=== PATIENT | female | born 1960 | race African-American/Black ===

== ENCOUNTER 2020-12-30 10:50 | Outpatient (CLI) | payer OTHER, SELFPAY ==
--- NOTE | ~2020-12-30 | MM_ITS ---
EXAMINATION: MM screening [facility] w lucretia HISTORY: Screening TECHNIQUE: Craniocaudal and mediolateral oblique 3-D tomosynthesis images were obtained and synthetic 2-D images were generated. CAD analysis was submitted and interpreted. COMPARISON: 02/21/2016 BREAST PARENCHYMAL COMPOSITION: There are scattered areas of fibroglandular density. FINDINGS: There is no evidence of suspicious mass, calcification, or architectural distortion to sugg est malignancy in either breast. There has been no suspicious interval change. IMPRESSION: 1. No mammographic evidence of malignancy. 2. Recommend routine screening mammography in one year. 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
== END 2020-12-30 10:51 | disposition home or self-care (01) ==
PROVIDERS: PCP Family Medicine; Visit Provider Obstetrics & Gynecology
DX: Z12.31 Encounter for screening mammogram for malignant neoplasm of breast (principal)
CPT/HCPCS: 77063; 77067

== ENCOUNTER → 2021-03-01 03:42 | Outpatient (CLI) | payer OTHER, SELFPAY ==
[2021-03-01 20:31] LABS: SARS-CoV-2 RNA PCR Negative
== END ==
PROVIDERS: PCP Family Medicine; Visit Provider Internal Medicine Gastroenterology
DX: Z01.812 Encounter for preprocedural laboratory examination (principal); Z20.822 Contact with and (suspected) exposure to COVID-19
CPT/HCPCS: C9803; U0003; U0005

== ENCOUNTER 2021-03-04 02:00 | Day surgery (SDC) | payer OTHER, SELFPAY ==
[2021-02-24 15:24] VITALS: BMI 29.1
[2021-03-04 09:01] VITALS: BP 142/92; PULSE 85; RESP 18; TEMP 35.9; O2SAT 100; BMI 29.8
[2021-03-04 09:10] LABS: Glucose Point of Care 111 (65-105)
[2021-03-04] MEDS: LACTATED RINGERS 1,000 ML 150 ML IV CONT (09:21)
--- NOTE | 2021-03-04 09:38 | PM.HPGS ---
History of Present Illness History of Present Illness Consent: Risks, benefits, and alternatives have been discussed and questions answered. Patient agrees to proceed with procedure. Chief complaint: neoplasm screening Narrative: Laura Neal is a 60 year old female referred for colon cancer screening. Review of Systems Review of Systems: All systems reviewed & are unremarkable except as noted in HPI and below PMFSH Past Medical History Medical History Borderline diabetes H/O vaginal delivery x5 High cholesterol Hypertension Surgical History Surgical History History of tubal ligation [place] teeth removed Family History Family History Father Hypertension Cerebrovascular accident Family history of coronary artery disease Patient's father is Mother Hypertension Cerebrovascular accident Family history of coronary artery disease Patient's mother is Sibling Cerebrovascular accident Grandparent Diabetes mellitus Other Lung cancer Social History Social History Social History: Smoking status: Never smoker Tobacco type: cigarettes Second hand tobacco smoke exposure: No Smoking end date: 08/21/79 Alcohol intake: never Substance use: never Substance use type: does not use Living arrangements: with family Gender identity (if verbalized by the patient): Female Spiritual care concerns: No Meds Home Medications and Allergies Home Medications Medication Instructions Recorded Confirmed Type atenolol 25 mg tablet 25 mg PO DAILY 11/24/19 03/04/21 History indapamide 2.5 mg tablet 2.5 mg PO DAILY 11/24/19 03/04/21 History Allergies Allergy/AdvReac Type Severity Reaction Status Date / Time sunscreen Allergy Intermediate Hives Uncoded 03/04/21 08:54 Vital Signs Vital Signs - 24 hr 03/04/21 09:01 Temperature 35.9 C L Pulse Rate 85 Respiratory Rate 18 Blood Pressure 142/92 H Pulse Oximetry 100 Exam Resp: Auscultation: clear to auscultation bilaterally Cardio: Rate: regular rate Rhythm: regular rhythm GI: GI Palp: Yes Soft to palpation and No Tenderness to palpation present (GI) Assessment and Plan Assessment and plan (1) Colon cancer screening: Code(s): Z12.11 - Encounter for screening for malignant neoplasm of colon Status: Acute Assessment and Plan: Colonoscopy with possible biopsy or polypectomy or cautery or injection of substances.
--- NOTE | 2021-03-04 09:52 | WPDANESEPPF ---
Anes - Initial Pre Proc Eval Procedure: Operation Date: 03/04/21 10:00 Proposed Procedures p Screening Colonoscopy - Nick Mendoza MD Date/Time: 03/04/21 09:52 Surgeon: Nick Mendoza MD Pre Op Diagnosis: neoplasm screening Patient Data Age: 60 Gender: F Height: 5 ft 4 in Weight: 78.8 kg Last Vital Signs Temp 96.6 F L 03/04/21 09:01 Pulse 85 03/04/21 09:01 Resp 18 03/04/21 09:01 BP 142/92 H 03/04/21 09:01 Pulse Ox 100 03/04/21 09:01 Allergies Allergy/AdvReac Type Severity Reaction Status Date / Time sunscreen Allergy Intermediate Hives Uncoded 03/04/21 08:54 Home Medications Medication Instructions Recorded Confirmed Type atenolol 25 mg tablet 25 mg PO DAILY 11/24/19 03/04/21 History indapamide 2.5 mg tablet 2.5 mg PO DAILY 11/24/19 03/04/21 History Laboratory Tests 03/04/21 09:07 POC Capillary Glucose 111 mg/dl H mg/dl (65-105) Patient hx anesthesia problems: none Family hx anesthesia problems: none PMFSH Past Medical History Medical History Borderline diabetes H/O vaginal delivery x5 High cholesterol Hypertension Surgical History Surgical History History of tubal ligation [place] teeth removed Family History Family History Father Hypertension Cerebrovascular accident Family history of coronary artery disease Patient's father is Mother Hypertension Cerebrovascular accident Family history of coronary artery disease Patient's mother is Sibling Cerebrovascular accident Grandparent Diabetes mellitus Other Lung cancer Social History Social History Social History: Smoking status: Never smoker Tobacco type: cigarettes Second hand tobacco smoke exposure: No Smoking end date: 08/21/79 Alcohol intake: never Substance use: never Substance use type: does not use Living arrangements: with family Gender identity (if verbalized by the patient): Female Spiritual care concerns: No Anes - Eval Final PreProcedure Day of Procedure 03/04/21 09:52 Patient weight: overweight Heart: regular rate and rhythm Lungs: clear to auscultation Airway: Mallampati scale class II Neurological: alert and oriented Last oral intake: >/= 8 hours ASA classification: II Emergent: no Anesthetic plan: proceed Anesthesia type and monitoring: general GIVS and standard monitoring Informed Consent: The patient's anesthetic plan and its attendant risks and benefits were discussed with the patient/family/POA. Questions were solicited and answers provided to the satisfaction of the patient/family/POA.
[2021-03-04 10:21] VITALS: BP 114/70; PULSE 73; RESP 18; O2SAT 100
[2021-03-04 10:31] VITALS: BP 123/77; PULSE 70; RESP 18; O2SAT 99
[2021-03-04 10:41] VITALS: BP 143/93; PULSE 71; RESP 18; O2SAT 100
== END 2021-03-04 10:54 | disposition home or self-care (01) ==
PROVIDERS: PCP Family Medicine; Visit Provider Internal Medicine Gastroenterology
PROC: 0DJD8ZZ Inspection of Lower Intestinal Tract, Via Natural or Artificial Opening Endoscopic (ICD-10-PCS; CPT 45378; principal; 2021-03-04 10:00)
DX: Z12.11 Encounter for screening for malignant neoplasm of colon (principal); K63.5 Polyp of colon; D12.3 Benign neoplasm of transverse colon; K57.32 Diverticulitis of large intestine without perforation or abscess without bleeding; I10 Essential (primary) hypertension; E78.00 Pure hypercholesterolemia, unspecified
CPT/HCPCS: 45385; 45380; 82948; 88305; C9803; J2704; J7120; U0003; U0005

== ENCOUNTER 2022-03-10 10:30 | Outpatient (CLI) | payer OTHER, SELFPAY ==
--- NOTE | ~2022-03-10 | XR_ITS ---
XR lumbar spine min 4V DATE: 03/10/2022 10:49 INDICATION: Low back pain. No injury. TECHNIQUE: AP, lateral, bilateral oblique views and coned lateral lumbosacral view COMPARISON: None FINDINGS: There is mild dextro scoliosis of the lower thoracic and lumbar spine. No fracture or bone destruction or spondylolisthesis is noted. There is degenerative change at the lo wer lumbar and lumbosacral apophyseal joints with associated grade 1 anterolisthesis at L4-5. There is mild loss of interspace height at L3-4 and moderately prominent loss of interspace height at L4-5. The sacroiliac joints are intact IMPRESSION: Dextroscoliosis Grade 1 anterolisthesis at L4-5 Mild loss of interspace height at L3-4, moderately prominent loss of interspace height at L4-5 Reviewed, dictated and finalized at location A.
== END 2022-03-10 10:31 | disposition home or self-care (01) ==
LOC: ANHIMG 10:33
PROVIDERS: PCP Family Medicine; Visit Provider Family Medicine
DX: M47.816 Spondylosis without myelopathy or radiculopathy, lumbar region (principal); M41.9 Scoliosis, unspecified
CPT/HCPCS: 72110

== ENCOUNTER 2024-07-07 14:11 | Outpatient (CLI) | payer OTHER, SELFPAY ==
--- NOTE | ~2024-07-07 | MM_ITS ---
EXAMINATION: MM screening [facility] w lucretia HISTORY: Screening TECHNIQUE: Craniocaudal and mediolateral oblique 3-D tomosynthesis images were obtained and synthetic 2-D images were generated. CAD analysis was submitted and interpreted. COMPARISON: No prior mammogram is available for comparison at this institution. BREAST PARENCHYMAL COMPOSITION: Not dense: There are scattered areas of fibroglandular density. FINDINGS: There is no evidence of suspicious mass, calcification, or architectural distortion to sugg est malignancy in either breast. There has been no suspicious interval change. IMPRESSION: 1. No mammographic evidence of malignancy. 2. Recommend routine screening mammography in one year. BI-RADS Category 1: Negative Reviewed, dictated and finalized at location B.
== END 2024-07-07 14:12 | disposition home or self-care (01) ==
LOC: ANHIMG 14:13
PROVIDERS: PCP Family Medicine; Visit Provider Physician Assistant
DX: Z12.31 Encounter for screening mammogram for malignant neoplasm of breast (principal)
CPT/HCPCS: 77063; 77067